=== PATIENT | male | born 1970 | race Caucasian/White ===

== ENCOUNTER 2017-07-31 06:56 | Day surgery (SDC) | payer BC ==
[2017-07-31 07:46] VITALS: TEMP 98
[2017-07-31 07:47] VITALS: BP 122/81
--- NOTE | 2017-07-31 08:14 | RAD ---
LUMBAR SPINE THREE VIEWS: History: 47-year-old male with lumbar radiculopathy. FINDINGS: Upright lateral views of the lumbar spine performed with flexion and extension demonstrate some anter ior disc osteophytosis. Facet arthrosis. No acute fracture or dislocation. No evidence for significan t anterior retrolisthesis. No abnormal translation between flexion and extension. IMPRESSION: No abnormal translation between flexion and extension. Generalized spondylosis. POS: [facility]
--- NOTE | 2017-07-31 08:50 | RAD ---
LUMBAR MYELOGRAM: Indication: Lumbar radiculopathy. Fluoroscopic time: 0.5 minutes with total exposure 7.3 mGy*cm^2. Technique: Informed consent was obtained. Pre procedure radiographs were performed of the lumbar spine. Informed consent was obtained. The patient was placed prone on the fluoroscopic table. Site overlying the rig ht aspect of the L2-3 intervertebral level was marked and site was prepped and draped in the usual st erile fashion. Buffered 1% Lidocaine was administered to underlying subcutaneous tissues. Under fluor oscopic guidance, a 22 gauge needle was guided into the thecal sac through the right L2-3 intralamina r space. There was spontaneous return of normal appearing CSF fluid with removal of the inter stylet. Following this, 12 cc of Isovue 200 was administered into the thecal sac. The stylet was replaced. T he needle was removed. The skin was then cleansed and bandages. The patient tolerated the procedure w ithout difficulty. IMPRESSION: Successful lumbar myelogram. POS: [facility]
--- NOTE | 2017-07-31 09:01 | CT ---
CT OF LUMBAR MYELOGRAM: Indication: Lumbar radiculopathy. Comparison: None FINDINGS: There is multilevel disc degenerative facet osteoarthritic changes of the lumbar spine. Spinal alignm ent is preserved. The conus terminates at approximately T12-L1. The visualized retroperitoneum demonstrates some mild vascular calcifications involving the abdominal aorta. No enlarged lymph nodes were grossly evident. There is mild to moderate right osteoarthritic change. L5-S1: There is an asymmetric to the left broad based disc osteophyte complex and mild facet osteoart hritic change inducing moderate left neural foraminal narrowing without definite impingement. There i s mild right neural foraminal narrowing due to a broad based disc osteophyte complex. L4-5: There is a broad based disc bulge with facet hypertrophy, again, more prominent to the left ind ucing moderate left neural foraminal narrowing. L3-4: There is a mild broad based disc bulge without appreciable central canal or neural foraminal na rrowing. L2-3: There is no appreciably central canal or neural foraminal narrowing. L1-2: There is no appreciable central canal or neural foraminal narrowing. T12-L1: There is no appreciable central canal or neural foraminal narrowing. IMPRESSION: 1. Multilevel spondylosis of the lumbar spine, most pronounced at L4-5 and L5-S1. 2. Moderate left neural foraminal narrowing at L4-5 and L5-S1. 3. 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 POS: [facility]
== END 2017-07-31 09:38 | disposition home or self-care (01) ==
LOC: RAD 06:56
PROVIDERS: ATTEND Neurological Surgery
PROC: B01B1ZZ Fluoroscopy of Spinal Cord using Low Osmolar Contrast (ICD-10-PCS; principal; 2017-07-31)
DX: M54.16 Radiculopathy, lumbar region (principal)
CPT/HCPCS: 62304; 72100; 72132

== ENCOUNTER 2017-08-04 11:56 | Emergency (ER) | payer BC ==
[2017-08-04] MEDS ORDERED: diphenhydrAMINE 50 MG/ML VIAL ONE (12:31)
[2017-08-04] MEDS ORDERED: Metoclopramide HCl 10 MG/2 ML VIAL ONE (12:32)
[2017-08-04] MEDS ORDERED: Ketorolac Tromethamine 30 MG/ML VIAL ONE (12:32)
[2017-08-04] MEDS ORDERED: ADMIXTURE FEE IVPB SCH (14:00)
[2017-08-04] MEDS ORDERED: SODIUM CHLORIDE IVPB SCH (14:00)
[2017-08-04] MEDS ORDERED: SODIUM BENZOATE IVPB SCH (14:00)
[2017-08-04] MEDS ORDERED: CAFFEINE IVPB SCH (14:00)
[2017-08-04] MEDS ORDERED: Caffeine Citrated 60 MG/3 ML VIAL PO SCH ×2 (14:30)
[2017-08-04] MEDS ORDERED: Water For Inject, Bacteriostat 30 ML ONE (16:53)
[2017-08-04] MEDS ORDERED: methylPREDNISolone Sod Succ/PF 125 MG/2 ML VIAL ONE (16:53)
[2017-08-04] MEDS ORDERED: traMADol HCl 50 MG TAB ONE (16:53)
== END 2017-08-04 17:04 | disposition home or self-care (01) ==
LOC: ERS 11:56
DX: G97.1 Other reaction to spinal and lumbar puncture (principal); F17.220 Nicotine dependence, chewing tobacco, uncomplicated; E78.00 Pure hypercholesterolemia, unspecified; E11.9 Type 2 diabetes mellitus without complications; I50.9 Heart failure, unspecified; I11.0 Hypertensive heart disease with heart failure; G89.29 Other chronic pain; M54.9 Dorsalgia, unspecified; Z79.84 Long term (current) use of oral hypoglycemic drugs; Z79.899 Other long term (current) drug therapy
CPT/HCPCS: 96361; 96365; 96375; J0706; J1200; J1885; J2765; J2930; J7050